=== PATIENT | female | born 1975 | race American Indian/Alaskan Native ===

== ENCOUNTER 2018-10-24 09:29 | Outpatient (CLI) | payer OTHER ==
[~2018-10-24 09:29] MED LIST: DICLEGIS DR 101 EACH PO; PRENATAL CAPLE1 EACH PO; Procardia Xl 30MG TAB PO; SIDEROL TABLET1 TAB PO; SYNTHROID50 MCG PO; VITAMIN D1000 UNIT PO
== END 2018-10-24 09:33 | disposition home or self-care (01) ==
LOC: SONOGRAMA 09:29
DX: E04.2 Nontoxic multinodular goiter (principal)